=== PATIENT | male | born 1985 | race Caucasian/White ===

== ENCOUNTER 2018-07-22 09:31 | Emergency (ER) | payer MEDICAID, OTHER ==
[~2018-07-22] VITALS: Ht 177.8 cm; Wt 73.0 kg
[~2018-07-22 09:31] MED LIST: CYCL-1 PO; NEOM10SO7 OT
[2018-07-22] MEDS ORDERED: haloperidol lactate 5mg/ml inj IM ONE (09:45)
[2018-07-22] MEDS ORDERED: LORazepam 2 mg/ml vial IM ONE (09:45)
[2018-07-22] MEDS ORDERED: diphenhydrAMINE 50 mg/ml inj IM ONE (09:45)
[2018-07-22] MEDS ORDERED: albuterol 2.5 MG/3 ML nebule NEB ONE (09:50)
[2018-07-22] MEDS ORDERED: METH4TAB81 PO (10:01)
[2018-07-22] MEDS ORDERED: ALBU8.5H8 IH (10:01)
[2018-07-22] MEDS ORDERED: AMOX-580 PO (10:01)
[2018-07-22 10:31] VITALS: BP 123/95
== END 2018-07-22 10:30 | disposition home or self-care (01) ==
LOC: ER 09:31
DX: J20.9 Acute bronchitis, unspecified (principal); F12.90 Cannabis use, unspecified, uncomplicated; Z79.2 Long term (current) use of antibiotics; Z79.899 Other long term (current) drug therapy
CPT/HCPCS: 94640; 94760; 99283

== ENCOUNTER 2020-12-10 21:55 | Emergency (ER) | payer MEDICAID ==
[~2020-12-10] VITALS: Ht 177.8 cm; Wt 81.0 kg
[~2020-12-10 21:55] MED LIST changes: +ALBU8.5H8 IH; +METH4TAB81 PO
[2020-12-10 22:16] VITALS: BP 122/85
[2020-12-10] MEDS ORDERED: predniSONE 20 mg tablet PO ONE (23:45)
[2020-12-10] MEDS ORDERED: prednisone 10mg tablet PO SCH (23:55)
[2020-12-10] MEDS ORDERED: PRED10TA23 PO (23:58)
== END 2020-12-11 00:08 | disposition home or self-care (01) ==
LOC: ER 21:55
DX: L23.7 Allergic contact dermatitis due to plants, except food (principal); F12.90 Cannabis use, unspecified, uncomplicated; Z79.899 Other long term (current) drug therapy
CPT/HCPCS: 99283; J7512

== ENCOUNTER 2023-08-07 08:21 | Emergency (ER) | payer MEDICAID ==
[~2023-08-07] VITALS: Ht 177.8 cm; Wt 80.8 kg
[~2023-08-07 08:21] MED LIST changes: +ALBU8.5H17 IH; -ALBU8.5H8 IH
[2023-08-07 08:41] VITALS: BP 163/106; PULSE 82; RESP 16; TEMP 97.9; O2SAT 97
== END 2023-08-07 09:30 | disposition left against medical advice (07) ==
LOC: ER 08:22
DX: R07.81 Pleurodynia (principal); Z53.21 Procedure and treatment not carried out due to patient leaving prior to being seen by health care provider
CPT/HCPCS: 71100; 99281

== ENCOUNTER 2025-05-06 14:04 | Emergency (ER) | payer MEDICAID ==
[~2025-05-06] VITALS: Ht 177.8 cm; Wt 83.0 kg
[2025-05-06 14:05] VITALS: TEMP 99.3
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
[2025-05-06] MEDS: HYDROcodone/acetaminophen 10/325mg tab PO ONE (15:26)
--- NOTE | 2025-05-06 15:38 | RADIOLOGY REPORT ---
Indication: Trauma Technique: DI SHOULDER, COMPLETE (MIN 2 VWS)SHOULDERCM Comparison: None FINDINGS/IMPRESSION: Comminuted , displaced fracture of the left acromion. No evidence for left glenohumeral dislocation.
[2025-05-06 16:51] VITALS: BP 142/92; PULSE 96; RESP 16; O2SAT 96
[2025-05-06] MEDS ORDERED: HYDR-3965 PO (16:52)
== END 2025-05-06 17:07 | disposition home or self-care (01) ==
LOC: ER 14:05
DX: S42.122A Displaced fracture of acromial process, left shoulder, initial encounter for closed fracture (principal); F12.90 Cannabis use, unspecified, uncomplicated; Z79.899 Other long term (current) drug therapy; V43.53XA Car driver injured in collision with pick-up truck in traffic accident, initial encounter; Y93.89 Activity, other specified; Y92.89 Other specified places as the place of occurrence of the external cause; Y99.8 Other external cause status
CPT/HCPCS: 29125; 73030; 99283; A4565